=== PATIENT | male | born 1965 | race Caucasian/White ===

== ENCOUNTER → 2016-12-10 | Outpatient (CLI) | payer MEDICAID ==
[2016-12-10 13:06] VITALS: BP 142/84; PULSE 83; RESP 20; TEMP 98.8; BMI 34.0
--- NOTE | 2016-12-10 13:52 | P.BASOAP ---
Subjective Principal diagnosis: Morbid obesity Patient doing well today. Weight has been maintained at 244. His lab work from August was reviewed. He recently started increasing his vitamin D level at home. Denies nausea vomiting. Some mild chronic heartburn that is controlled with Prilosec. Objective - Vital Signs Vital signs: Vital Signs Temp 98.8 F 12/10/16 13:01 Pulse 83 12/10/16 13:01 Resp 20 12/10/16 13:01 BP 142/84 12/10/16 13:01 Pulse Ox Intake & Output 12/09/16 12/10/16 12/10/16 18:59 06:59 18:59 Weight 110.696 kg - Exam Abdomen: Soft, nontender, nondistended Assessment/Plan (1) Morbid obesity Narrative/Plan: Continue dietary and exercise regimen. Follow-up clinic evaluation 3-4 months. Plan repeat lab work in August. The patient I discussed possibly stopping his additional vitamin B1 medications a few months prior to his lab draw. Plan: Date: 12/10/16 Initial Weight: 160.481 kg Initial BMI: 49.3 Current Weight: 110.696 kg Current BMI: 34.0 Type of Surgery: Total Volume in Band: Previous Volume: Volume Removed: Volume Added: Band Size:
== END | disposition home or self-care (01) ==
LOC: BARWHC3 12:42
PROVIDERS: ATTEND Surgery
DX: E66.01 Morbid (severe) obesity due to excess calories (principal); R12 Heartburn; Z98.84 Bariatric surgery status; Z68.34 Body mass index [BMI] 34.0-34.9, adult
CPT/HCPCS: 99211

== ENCOUNTER → 2017-04-08 | Outpatient (CLI) | payer MEDICAID ==
[2017-04-08 13:27] VITALS: BP 119/78; TEMP 98; BMI 35.4
--- NOTE | 2017-04-08 14:53 | P.BASOAP ---
Subjective Principal diagnosis: Morbid obesity Patient doing well today. He was recently at [place] for 2 weeks and has had a slight weight gain that he attributes to the recent vacation. Denies GERD symptoms. No vomiting. Still take vitamin D daily. Due for annual lab work in August. Objective - Vital Signs Vital signs: Vital Signs Temp 98 F 04/08/17 13:19 Pulse Resp BP 119/78 04/08/17 13:19 Pulse Ox Intake & Output 04/07/17 04/08/17 04/08/17 18:59 06:59 18:59 Weight 115.394 kg - Exam Abdomen: Soft, nontender, nondistended Assessment/Plan (1) Morbid obesity Narrative/Plan: Follow-up this August and we'll check labs at that time. The patient will stop his vitamin B1 6 weeks prior to that to see if he is maintaining. Continue exercise and dietary regimen. Plan: Date: 04/08/17 Initial Weight: 160.481 kg Initial BMI: 49.3 Current Weight: 115.394 kg Current BMI: 35.4 Type of Surgery: Total Volume in Band: Previous Volume: Volume Removed: Volume Added: Band Size:
== END | disposition home or self-care (01) ==
LOC: BARWHC3 13:03
PROVIDERS: ATTEND Surgery
DX: E66.01 Morbid (severe) obesity due to excess calories (principal); Z68.35 Body mass index [BMI] 35.0-35.9, adult
CPT/HCPCS: 99211

== ENCOUNTER → 2017-10-07 | Outpatient (CLI) | payer MEDICAID ==
[2017-10-07 13:11] VITALS: BP 119/75; PULSE 77; RESP 16; TEMP 98.1; BMI 37.0
--- NOTE | 2017-10-07 14:41 | P.BASOAP ---
Subjective Progress Note Date: 10/07/17 Principal diagnosis: Morbid obesity Patient presents on follow-up. He was last seen in March of last year. He is 2 years postop. Doing well. 11 pound weight gain since last visit. Still with mild reflux and is on antiacid therapy at this time. No change in appetite. No change in the volume that he is eating. He recently stopped his vitamin B1 supplementation. He is due for to your lab work. Still takes vitamin D as well. He states he is due for a colonoscopy at this time. Exercise has decreased Objective - Vital Signs Vital signs: Vital Signs Temp 98.1 F 10/07/17 13:08 Pulse 77 10/07/17 13:08 Resp 16 10/07/17 13:08 BP 119/75 10/07/17 13:08 Pulse Ox Intake & Output 10/06/17 10/07/17 10/07/17 18:59 06:59 18:59 Weight 120.457 kg - Exam Abdomen: Soft, nontender, nondistended Assessment/Plan (1) Morbid obesity Narrative/Plan: Will try decreasing antiacid intake to every other day. Check to your lab works at this time. Increase exercise level. Follow-up 6 months. Plan: Date: 10/07/17 Initial Weight: 160.481 kg Initial BMI: 49.3 Current Weight: 120.457 kg Current BMI: 37.0 Type of Surgery: Total Volume in Band: Previous Volume: Volume Removed: Volume Added: Band Size:
== END | disposition home or self-care (01) ==
LOC: BARWHC3 12:45
PROVIDERS: ATTEND Surgery
DX: Z48.815 Encounter for surgical aftercare following surgery on the digestive system (principal); E66.01 Morbid (severe) obesity due to excess calories; K90.89 Other intestinal malabsorption; E55.9 Vitamin D deficiency, unspecified; Z68.37 Body mass index [BMI] 37.0-37.9, adult
CPT/HCPCS: 99211

== ENCOUNTER → 2017-10-11 | Outpatient (CLI) | payer MEDICAID ==
[2017-10-11 07:34] LABS: Basophils # (A) 0.1 k/uL (0-0.2); Basophils % (A) 1 %; Eosinophils # (A) 0.1 k/uL (0-0.7); Eosinophils % (A) 3 %; HCT 43.3 % (39.0-53.0); HGB 14.5 gm/dL (13.0-17.5); Lymphocytes # (A) 1.9 k/uL (1.0-4.8); Lymphocytes % (A) 38 %; MCH 30.3 pg (25.0-35.0); MCHC 33.6 g/dL (31.0-37.0); MCV 90.2 fL (80.0-100.0); Mean Platelet Volume 7.4; Monocytes # (A) 0.3 k/uL (0-1.0); Monocytes % (A) 6 %; Neutrophils # (A) 2.5 k/uL (1.3-7.7); Neutrophils % (A) 50 %; Platelet Count 172 k/uL (150-450); RDW 12.4 % (11.5-15.5)
[2017-10-11 09:32] LABS: ALT 30 U/L (21-72); AST 29 U/L (17-59); Albumin 4.4 g/dL (3.5-5.0); Alkaline Phosphatase 53 U/L (38-126); Anion Gap 9 mmol/L; Blood Urea Nitrogen 23 mg/dL (9-20); Calcium 9.6 mg/dL (8.4-10.2); Carbon Dioxide 29 mmol/L (22-30); Chloride 105 mmol/L (98-107); Cholesterol 170 mg/dL (<200); Glucose 104 mg/dL (74-99); HDL Cholesterol 54 mg/dL (40-60); LDL Cholesterol,Calculated 108 mg/dL (0-99); Sodium 143 mmol/L (137-145); Total Bilirubin 0.7 mg/dL (0.2-1.3); Total Protein 7.4 g/dL (6.3-8.2); Triglycerides 41 mg/dL (<150)
[2017-10-11 09:33] LABS: Potassium 4.5 mmol/L (3.5-5.1)
[2017-10-11 11:57] LABS: Vitamin D 25 Hydroxy 36.7 ng/mL (30.0-100.0)
== END | disposition home or self-care (01) ==
LOC: LABWHC1 07:03
PROVIDERS: ATTEND Family Medicine
DX: Z00.00 Encounter for general adult medical examination without abnormal findings (principal); K90.89 Other intestinal malabsorption; E55.9 Vitamin D deficiency, unspecified; E66.01 Morbid (severe) obesity due to excess calories; Z12.5 Encounter for screening for malignant neoplasm of prostate
CPT/HCPCS: 36415; 80053; 80061; 82306; 82607; 83540; 84153; 84425; 84443; 85025

== ENCOUNTER 2017-12-03 07:07 | Day surgery (SDC) | payer MEDICAID ==
[2017-12-01 10:14] VITALS: BMI 35.9
[~2017-12-03 07:07] MED LIST: LACTATED RINGERS 1,000 ML IV SCH
[2017-12-03 07:56] VITALS: RESP 18; TEMP 98.2
[2017-12-03] MEDS ORDERED: LACTATED RINGERS 1,000 ML IV ONE ×2 (07:59)
[2017-12-03] MEDS ORDERED: LIDOCAINE 1% INJ 10MG/ML (20 ML MDV) ONE (08:16)
[2017-12-03] MEDS ORDERED: PROPOFOL 10 MG/ML 20 ML VIAL IV ONE (08:16)
--- NOTE | 2017-12-03 08:23 | P.GSHP ---
History of Present Illness H&P Date: 12/03/17 Chief Complaint: Colon cancer screening Patient her today for colonoscopy. He has not had one previously. No family history of bowel cancer. No bowel related complaints. Past Medical History Past Medical History: Diabetes Mellitus, GERD/Reflux, Hypertension, Osteoarthritis (OA) Additional Past Medical History / Comment(s): Hip pain, HTN and DM resolved with weight loss of 120# History of Any Multi-Drug Resistant Organisms: None Reported Past Surgical History: Bariatric Surgery, Orthopedic Surgery Additional Past Surgical History / Comment(s): Surgery on anabelle hips as a child. Left heel spur. Gastric sleeve on 08/23/2015 Past Anesthesia/Blood Transfusion Reactions: No Reported Reaction Smoking Status: Never smoker - Past Family History Mother Family Medical History: Diabetes Mellitus Additional Family Medical History / Comment(s): glaucoma Father Family Medical History: Cancer, Diabetes Mellitus Additional Family Medical History / Comment(s): prostate cancer Sister(s) Family Medical History: Diabetes Mellitus Medications and Allergies Home Medications Medication Instructions Recorded Confirmed Type Calcium Carbonate [Calcium] 600 mg PO TID 09/12/15 12/01/17 History Multivitamins, Thera [Theragran] 1 each PO DAILY 09/12/15 12/01/17 History Omeprazole [Omeprazole] 20 mg PO DAILY 09/12/15 12/01/17 History Ferrous Sulfate [Feosol] 325 mg PO DAILY 11/22/15 12/01/17 History Thiamine [Vitamin B-1] 100 mg PO DAILY 11/22/15 12/01/17 History Cholecalciferol (Vitamin D3) 10 drop PO DAILY 04/08/17 12/01/17 History [Vitamin D3] Allergies Allergy/AdvReac Type Severity Reaction Status Date / Time No Known Allergies Allergy Verified 12/01/17 10:10 Surgical - Exam Vital Signs Temp Pulse Resp BP Pulse Ox 98.2 F 65 18 127/80 100 12/03/17 07:55 12/03/17 07:55 12/03/17 07:55 12/03/17 07:55 12/03/17 07:55 Physical exam: General: Well-developed, well-nourished HEENT: Normocephalic, sclerae nonicteric Abdomen: Nontender, nondistended Extremities: No edema Neuro: Alert and oriented Assessment and Plan (1) Colon cancer screening Narrative/Plan: Will proceed with colonoscopy at this time. Current Visit: Yes Status: Acute Code(s): Z12.11 - ENCOUNTER FOR SCREENING FOR MALIGNANT NEOPLASM OF COLON SNOMED Code(s): 622200642
--- NOTE | 2017-12-03 08:40 | P.PCN ---
Date of Procedure: 12/03/17 Procedure(s) Performed: PREOPERATIVE DIAGNOSIS: Colon cancer screening POSTOPERATIVE DIAGNOSIS: Rectal polyp PROCEDURE: Colonoscopy with snare polypectomy ANESTHESIA: MAC SURGEON: Tyler Flores M.D. SPECIMENS: Rectal polyp ENDOSCOPIC PROCEDURE: The patient was placed on the endoscopy table in the left decubitus position. The Olympus colonoscope was inserted into the anus and passed under direct visualization to the base of the cecum. The appendiceal orifice was visualized. From that point the scope was slowly withdrawn inspecting all surfaces carefully. There were no neoplastic inflammatory or polypoid lesions throughout the cecum, ascending, transverse, descending, and sigmoid colon. In the rectum a small polyp was identified and removed using the snare with cautery technique. There was no visible diverticulosis seen. Digital rectal examination was normal. The patient was taken to the recovery room in stable condition per anesthesia guidelines. RECOMMENDATIONS: Await biopsy results. Anticipate follow-up colonoscopy 5 years.
[2017-12-03 09:02] VITALS: BP 130/84; PULSE 58
== END 2017-12-03 09:26 | disposition home or self-care (01) ==
LOC: ORWHC2ENDO 07:07
PROVIDERS: ATTEND Surgery
DX: Z12.11 Encounter for screening for malignant neoplasm of colon (principal); D12.8 Benign neoplasm of rectum; E11.9 Type 2 diabetes mellitus without complications; I10 Essential (primary) hypertension; K21.9 Gastro-esophageal reflux disease without esophagitis; M19.90 Unspecified osteoarthritis, unspecified site; E66.01 Morbid (severe) obesity due to excess calories; Z79.899 Other long term (current) drug therapy; Z68.36 Body mass index [BMI] 36.0-36.9, adult; Z83.3 Family history of diabetes mellitus; Z80.42 Family history of malignant neoplasm of prostate
CPT/HCPCS: 88305; 45385; J2001; J2704

== ENCOUNTER → 2018-12-09 | Outpatient (CLI) | payer MEDICAID ==
--- NOTE | 2018-12-10 00:30 | MR ---
EXAMINATION TYPE: MR shoulder LT wo con DATE OF EXAM: 12/09/2018 COMPARISON: None HISTORY: Lt shoulder pain/injury 2 mos ago, fall TECHNIQUE: Multiplanar, multisequence imaging of the left shoulder is performed without contrast. FINDINGS: There is left shoulder joint effusion. There is some thickening and irregularity of the subscapularis tendon. The glenoid natalia appear intact. There is increased signal in the supraspinatus tendon over the humeral head consistent with full-thickness tear. There is no retraction. There is mild subacromi al joint space narrowing. There is extensive hypertrophic spurring at the AC joint. I see no focal daly ne destruction. There is some thinning of the biceps tendon. Biceps tendon is anteriorly displaced. IMPRESSION: Moderate shoulder joint effusion. Large rotator cuff tear of the supraspinatus tendon. There is also deformity and partial tear of the subscapularis tendon. No tendon retraction. Biceps tendon is mildly deformed and anterior suggestive of partial tear. No fracture. Significant hypertrophic degenerative change at the AC joint.
== END | disposition home or self-care (01) ==
LOC: RADMRIMAIN 16:16
PROVIDERS: ATTEND Orthopaedic Surgery
DX: S46.012A Strain of muscle(s) and tendon(s) of the rotator cuff of left shoulder, initial encounter (principal); M19.012 Primary osteoarthritis, left shoulder; M67.814 Other specified disorders of tendon, left shoulder

== ENCOUNTER 2019-02-17 10:42 | Day surgery (SDC) | payer MEDICAID ==
[2019-02-15 09:21] VITALS: BMI 36.2
[~2019-02-17 10:42] MED LIST changes: +LIDOCAINE 1% 20 ML VIAL (10MG/ML) FOR IV START INTRADERMA PRN; +ceFAZolin IN SWFI 2 GM/20 ML SYRINGE IVP ONE
[2019-02-17 11:11] LABS: Glucose,Whole Blood 96 mg/dL (75-99)
[2019-02-17] MEDS: ONDANSETRON 4 MG/2 ML VIAL IVP ONE ×2 (11:27→14:41)
[2019-02-17] MEDS ORDERED: DEXAMETHASONE SOD PHOS (MDV) 100 MG/10 ML VIAL IV ONE (11:28)
[2019-02-17] MEDS ORDERED: MIDAZOLAM (PF) 2 MG/2 ML VIAL IV ONE ×2 (11:40→11:57)
[2019-02-17] MEDS ORDERED: fentaNYL (PF) 50 MCG/ML 2 ML AMP IV ONE ×2 (11:40→11:58)
[2019-02-17] MEDS ORDERED: ROPIVACAINE 5 MG/ML 30 ML VIAL ONE (12:20)
[2019-02-17] MEDS ORDERED: fentaNYL (PF) 50 MCG/ML 2 ML AMP ONE (12:20)
[2019-02-17] MEDS ORDERED: LIDOCAINE 1% INJ 10MG/ML (20 ML MDV) ONE (12:20)
[2019-02-17] MEDS ORDERED: PROPOFOL 10 MG/ML 20 ML VIAL IV ONE (12:20)
[2019-02-17] MEDS ORDERED: MIDAZOLAM 2 MG/2 ML VIAL ONE (12:20)
[2019-02-17] MEDS ORDERED: DEXAMETHASONE SOD PHOS (MDV) 100 MG/10 ML VIAL ONE (12:20)
[2019-02-17] MEDS ORDERED: SUCCINYLCHOLINE CHLORIDE 100 MG/5 ML SYR IV ONE (12:20)
--- NOTE | 2019-02-17 12:22 | P.ANPRN ---
Procedure Note - Anesthesia - Nerve Block Performed Left Interscalene Single Time Out Performed: Yes Date of Procedure: 02/17/19 Procedure Start Time: 11:39 Location of Patient Procedure: PreOp Indication: Acute Post-Operative Pain Specifically requested for management of pain by DrWilmer: Kam Menezes Sedation Type: Sedate with meaningful contact maintained Preparation: Sterile Prep Position: Supine Catheter: None Needle Types: Pajunk Needle Gauge: 21 Technique: Ultrasound Injectate: 0.5% Ropivacaine (see comment for volume) (20) Blood Aspirated: No Pain Paresthesia on Injection Noted: No Resistance on Injection: Normal Events: Uneventful and Well Tolerated
[2019-02-17 14:01] VITALS: TEMP 96.8
[2019-02-17 14:30] VITALS: RESP 16
[2019-02-17 15:17] VITALS: BP 128/84; PULSE 77
--- NOTE | 2019-02-18 07:48 | OP ---
OPERATIVE REPORT DATE OF PROCEDURE: 02/17/2019 SURGEON: Kam Menezes MD RESIDENTIAL DIRECTOR: JERROD Hedrick. PREOPERATIVE DIAGNOSES: 1. Left shoulder full-thickness rotator cuff tear. 2. Left shoulder superior labral tear. 3. Left shoulder subacromial impingement. POSTOPERATIVE DIAGNOSES: 1. Left shoulder full-thickness tear of the supraspinatus 2 cm x 2 cm tear. 2. Left shoulder type 2 superior labral tear. 3. Left shoulder partial tearing intra-articular long head of the biceps tendon. 4. Left shoulder type 2 anterolateral acromial spur. PROCEDURE PERFORMED: 1. Left shoulder arthroscopic rotator cuff repair, 2 cm x 2 cm tear of the supraspinatus. 2. Left shoulder arthroscopic acromioplasty. 3. Left shoulder arthroscopic biceps tenotomy. 4. Left shoulder arthroscopic anterior, superior, and posterior labral debridement. ANESTHESIA: General endotracheal. ESTIMATED BLOOD LOSS: Minimal. TOURNIQUET: None. DRAINS: None. COMPLICATIONS: None. APPARENT DISPOSITION: Postanesthesia care unit. Examination under anesthesia, left shoulder, elevation 160 degrees, external rotation at the side 45 degrees, external rotation at 90 degrees, abduction was 90 degrees, internal rotation at 90 degrees, abduction was at 60 degrees, sulcus less than 1 cm, anterior translation glenoid face, posterior translation glenoid face. ARTHROSCOPIC FINDINGS OF THE LEFT SHOULDER: 1. Type 2 superior labral tear tearing both anterior and posterior to the biceps anchor. There is also partial tearing of the intra-articular portion of the long head of the biceps tendon. 2. Anterior, inferior labrum: Normal glenoid labral attachment. 3. Posterior labrum: Tearing of the posterior labrum from the 10 o'clock position up to the 12 o'clock position on the glenoid face. 4. Humeral head: Cartilage normal. 5. Rotator cuff: Full-thickness tear of the supraspinatus measuring 2 cm x 2 cm tear. 6. Glenoid face: Cartilage is normal. 7. Subacromial space: Significant fraying of the undersurface of the coracoacromial ligament with type 2 anterolateral acromial spur. INDICATIONS: Clive is a very pleasant 53-year-old male with left shoulder pain. 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 He has noted weakness as well as significant pain in the shoulder. He has been through fairly significant course of nonoperative treatment up to this point. Physical examination and MRI revealed tearing of the rotator cuff as well as a suggestion for superior labral tearing as well. At this point in time, he feels that he has failed nonoperative treatment and would like to proceed with operative intervention. Long discussion was held with the patient with regard to treatment options. The risks of procedure were all discussed with him in detail. These risks included, but were not limited to risk of infection, nerve damage, bleeding, pain, and a small risk of deep vein thrombosis which could lead to fatal pulmonary embolism. Further risks include lack of healing of the rotator cuff and possibility for biceps contour change with a biceps tenotomy. The patient understands the operation as well as the fact there is no guarantee of improvement of his symptoms. An appropriate informed consent was obtained. DESCRIPTION OF THE PROCEDURE: Patient identified in the preoperative holding area. Surgical site was marked by both the patient and myself. He was given 2 g of Ancef IV for prophylactic purposes. He was then transported to the operative suite. He was placed supine on the operative table. Patient was then intubated endotracheally and received general anesthesia throughout the operative procedure. Examination under anesthesia was then performed and the findings noted above. Patient is placed in the beach chair position, well-padded in preparation for surgery. Great care was taken to ensure the cervical spine is in neutral alignment, well-padded and maintained that way throughout the operative procedure. Great care was also taken to ensure that his legs were appropriately padded as well. Patient's left upper extremity was then prepped and draped in usual sterile fashion. Standard surgical pause undertaken to ensure that appropriate preoperative antibiotics were given and that we were operating on the correct site. All staff in room were in agreement and we proceeded. The acromion as well as the AC joint and coracoid were marked with surgical pen. The skin of the anticipated portal sites were also marked with surgical pen. The skin of the anticipated portal sites were then injected with 0.5% Marcaine with epinephrine. I then proceeded to make a posterior portal. A 30 degree arthroscope was used through the glenohumeral joint through this portal. The arthroscopic pump pressure was set at 40 mmHg and maintained at that level throughout the entire case. Next, utilizing an 18-gauge spinal needle topical localized placement, the anterior superior portal was made. This was made just underneath the biceps tendon high in the rotator interval. A small 5.75 mm cannula was then placed and the outflow was then done through this cannula. Diagnostic arthroscopy of the shoulder was then performed. The findings as noted above. Great care was taken to probe superior labral complex as well as the biceps anchor. He had a type 2 tear of the superior labrum. This extended both anterior and posterior to the biceps anchor. I did bring the grooved portion of the long head of the biceps tendon into the joint. There was partial tearing of the long head of the biceps tendon at that area. At this point, I proceeded with a biceps tenotomy. The biceps was tenotomized near its attachment on the supraglenoid tubercle. This was done utilizing the ArthroCare wand. I then proceeded to debride the torn loose tissue of the superior labrum. This was debrided anteriorly, superiorly, and posteriorly back to stable tissue. I then inspect the rotator cuff from intra-articular. He did have a full-thickness tear of the supraspinatus. This was sterilely debrided very gently from intra- articular utilizing synovial shaver. At this point, no further work was deemed necessary from intra-articular. The arthroscope was removed from the glenohumeral joint and utilizing the same posterior skin incision was placed in the subacromial space. Next, utilizing an 18-gauge spinal needle with topical localized placement, a lateral portal was made under direct visualization. A subacromial bursectomy was then performed utilizing synovial shaver as well as the ArthroCare wand. There was significant fraying of the undersurface of the coracoacromial ligament. This was then taken down utilizing the ArthroCare wand. This exposed underlying type 2 anterolateral acromial spur. I then proceeded with an acromioplasty. Utilizing synovial shaver in a sung-type fashion, the acromioplasty was completed. When the acromioplasty was complete, the arthroscope was placed in the lateral portal. The shaver placed posteriorly to ensure that there was adequate and coplanar with the posterior aspect of the acromion. I then proceeded to repair the rotator cuff tear. He had a full-thickness tear of the supraspinatus. It measured approximately 2 cm x 2 cm. The footprint of the greater tuberosity was then debrided of all devitalized tissue utilizing synovial shaver as well as the ArthroCare wand. I then performed a light decortication of the greater tuberosity utilizing synovial shaver in a sung-type fashion. This provided a nice bleeding surface with repair. I then furthermore placed a small microfracture holes along the articular margin to again enhance the healing of the repair. I then made a fourth portal off the anterolateral angle of the acromion. Again this was done after first localizing placement with an 18-gauge spinal needle. The arthroscope was moved into the lateral portal. I then utilized a scorpion suture passer and placed Arthrex fiber tape suture in inverted horizontal mattress fashion. The posterior half of the tear. I then again utilized the scorpion suture passer and placed Arthrex fiber tape suture in inverted horizontal mattress fashion in the anterior half of the tear. The anterior sutures were shuttled out through the anterior portal. I then proceeded placement of the first anchor. I started with the posterior anchor first. The awl was placed in the most posterior lateral aspect of the footprint. He had excellent bone quality. The posterior fiber tape sutures were shuttled through an Arthrex 4.75 mm bio SwiveLock anchor and then the anchor was placed after tensioning the sutures appropriately. The anchor had excellent purchase and bone. This brought the posterior half of the tear down very nicely to the most posterolateral aspect of the footprint. The FiberTape sutures were cut flush with the anchor. I then proceeded to place the anterior anchor. The anterior sutures were then brought out through the anterolateral portal. The awl was placed in the most anterolateral aspect of the footprint. This was just posterior to the bicipital groove. Again, he had excellent bone quality. The FiberTape sutures were then shuttled through an Arthrex 4.75 mm bio SwiveLock anchor. The few sutures were tensioned appropriately and the anchor placed with an excellent purchase in bone. This brought the anterior half of the tear down very nicely to the most anterolateral aspect of the footprint. The FiberTape sutures were then cut flush with the anchor. At this point, the repair was probed. The rotator cuff had been repaired down very nicely in the most lateral aspect of the footprint. Sutures had the anchors were firmly placed in bone. The sutures had good head support were done without any undue tension. At this point no further work was deemed necessary. The shoulder was thoroughly irrigated and drained with an outflow cannula. The arthroscope was removed from the shoulder. The arthroscopic portals were then closed with 3-0 nylon interrupted suture. Sterile compressive dressing was then applied. The patient's left upper extremity was then placed into a slingshot-type rotator cuff immobilizer. All sponge and needle counts were deemed correct prior to closure. The patient tolerated the procedure without apparent complication. He was transferred to recovery room in stable condition. MMODL / IJN: [id number] /
== END 2019-02-17 15:31 | disposition home or self-care (01) ==
LOC: OR 10:42
PROVIDERS: ATTEND Orthopaedic Surgery Sports Medicine
DX: M75.122 Complete rotator cuff tear or rupture of left shoulder, not specified as traumatic (principal); S43.432A Superior glenoid labrum lesion of left shoulder, initial encounter; S46.112A Strain of muscle, fascia and tendon of long head of biceps, left arm, initial encounter; W00.0XXA Fall on same level due to ice and snow, initial encounter; M75.92 Shoulder lesion, unspecified, left shoulder; M75.42 Impingement syndrome of left shoulder; Z98.84 Bariatric surgery status; Z83.3 Family history of diabetes mellitus; K21.9 Gastro-esophageal reflux disease without esophagitis; E66.9 Obesity, unspecified; Z68.36 Body mass index [BMI] 36.0-36.9, adult; M72.2 Plantar fascial fibromatosis; E11.9 Type 2 diabetes mellitus without complications; I10 Essential (primary) hypertension; Z79.1 Long term (current) use of non-steroidal anti-inflammatories (NSAID); Z79.899 Other long term (current) drug therapy; Z79.891 Long term (current) use of opiate analgesic
CPT/HCPCS: 64415; 29826; 29827; C1713 ×3; J2250 ×2; J2405; J2001; J3010; J1100; J2795; J0330; J2704; J0690

== ENCOUNTER → 2019-11-16 | Outpatient (CLI) | payer MEDICAID ==
[2019-11-16 07:39] LABS: Basophils % (A) 1 %; Eosinophils # (A) 0.1 k/uL (0-0.7); Eosinophils % (A) 3 %; HCT 41.7 % (39.0-53.0); HGB 13.9 gm/dL (13.0-17.5); Lymphocytes # (A) 1.8 k/uL (1.0-4.8); Lymphocytes % (A) 35 %; MCH 29.5 pg (25.0-35.0); MCHC 33.2 g/dL (31.0-37.0); MCV 88.9 fL (80.0-100.0); Monocytes # (A) 0.3 k/uL (0-1.0); Monocytes % (A) 6 %; Neutrophils # (A) 2.7 k/uL (1.3-7.7); Neutrophils % (A) 53 %; Platelet Count 159 k/uL (150-450); RDW 12.4 % (11.5-15.5); WBC 5.1 k/uL (3.8-10.6)
[2019-11-16 13:34] LABS: % Iron Saturation 35.76 (15.00-50.00); ALT 20 U/L (10-49); AST 24 U/L (14-35); African American GFR (CKD) 99.8 (60.0-200.0); Albumin/Globulin Ratio 1.76 (1.60-3.17); Alkaline Phosphatase 46 U/L (41-126); Calcium 9.3 mg/dL (8.7-10.3); Carbon Dioxide 27.4 mmol/L (21.6-31.8); Chloride 104 mmol/L (96-109); Chol/HDL Ratio 3.18; Cholesterol 162 mg/dL (0-200); Globulin 2.5 g/dL (1.6-3.3); Glucose 115 mg/dL (70-110); Iron 118 ug/dL (65-175); Magnesium 1.8 mg/dL (1.5-2.4); Non-African American GFR(CKD) 86.2 (60.0-200.0); Potassium 4.2 mmol/L (3.5-5.5); Sodium 139 mmol/L (135-145); Total Bilirubin 1.1 mg/dL (0.3-1.2); Total Iron Binding Capacity 330 ug/dL (228-460); Total Protein 6.9 g/dL (6.2-8.2); Triglycerides <50.0 mg/dL (0.0-149.0)
[2019-11-16 14:47] LABS: Ferritin 17.2 ng/mL (22.0-322.0); Folate, Serum 22.8 ng/mL
[2019-11-16 16:13] LABS: Hemoglobin A1C 5.6 % (4.0-6.0)
[2019-11-17 10:43] LABS: Zinc, Serum 79 ug/dL (60-130)
[2019-11-18 10:08] LABS: Vitamin A 43 ug/dL (38-106)
[2019-11-19 10:50] LABS: Vit B1(Thiamine) 89 ug/L (38-122)
== END | disposition home or self-care (01) ==
LOC: LABWHC1 07:05
PROVIDERS: ATTEND Family Medicine
DX: Z00.00 Encounter for general adult medical examination without abnormal findings (principal); Z12.5 Encounter for screening for malignant neoplasm of prostate; Z98.84 Bariatric surgery status
CPT/HCPCS: 84425; 80061; 80053; 82607; 82728; 82746; 83540; 83550; 83735; 84443; 84590; 84630; 85025; 82306; 83036; 36415; G0103

== ENCOUNTER → 2020-11-27 | Outpatient (CLI) | payer BC ==
[2020-11-27 10:34] LABS: Basophils # (A) 0.05 X 10*3/uL (0.00-0.10); Basophils % (A) 0.7 %; Eosinophils # (A) 0.08 X 10*3/uL (0.04-0.35); Eosinophils % (A) 1.2 %; HCT 40.4 % (39.6-50.0); HGB 13.3 g/dL (13.0-17.0); Lymphocytes # (A) 2.23 X 10*3/uL (0.90-5.00); Lymphocytes % (A) 33.4 %; MCH 29.3 pg (27.0-32.0); MCHC 32.9 g/dL (32.0-37.0); Mean Platelet Volume 11.6 fL (9.5-12.2); Monocytes # (A) 0.51 X 10*3/uL (0.20-1.00); Monocytes % (A) 7.6 %; Platelet Count 149 X 10*3/uL (140-440); RBC 4.54 X 10*6/uL (4.40-5.60); RDW 12.3 % (11.5-14.5); WBC 6.68 X 10*3/uL (4.50-10.00)
[2020-11-27 11:03] LABS: ALT 19 U/L (10-49); AST 22 U/L (14-35); African American GFR (CKD) 112.6 (60.0-200.0); Albumin/Globulin Ratio 1.83 (1.60-3.17); Alkaline Phosphatase 53 U/L (41-126); Calcium 9.3 mg/dL (8.7-10.3); Carbon Dioxide 30.5 mmol/L (21.6-31.8); Chloride 106 mmol/L (96-109); Chol/HDL Ratio 2.91; Cholesterol 154 mg/dL (0-200); Globulin 2.4 g/dL (1.6-3.3); Glucose 107 mg/dL (70-110); Non-African American GFR(CKD) 97.2 (60.0-200.0); Potassium 4.3 mmol/L (3.5-5.5); Sodium 142 mmol/L (135-145); Total Bilirubin 0.8 mg/dL (0.3-1.2); Total Protein 6.8 g/dL (6.2-8.2); Triglycerides <50.0 mg/dL (0.0-149.0)
[2020-11-27 11:33] LABS: Prostate Specific Antigen 1.3 ng/mL (0.0-3.5)
== END | disposition home or self-care (01) ==
LOC: LABWHC1 07:29
PROVIDERS: ATTEND Family Medicine
DX: Z00.00 Encounter for general adult medical examination without abnormal findings (principal); Z12.5 Encounter for screening for malignant neoplasm of prostate
CPT/HCPCS: 36415; 80053; 80061; 84153; 84443; 85025

== ENCOUNTER 2022-06-04 10:18 | Emergency (ER) | payer BC, OTHER ==
[2022-06-04 10:28] VITALS: BP 165/88; PULSE 73; RESP 20; TEMP 98.2
[2022-06-04] MEDS ORDERED: LIDOCAINE 1% INJ 10MG/ML (20 ML MDV) SQ ONE (11:54)
--- NOTE | 2022-06-04 12:16 | ED ---
Wound/Laceration HPI - General Chief Complaint: Wound/Laceration Stated Complaint: IHS-arm lac Time Seen by Provider: 06/04/22 11:54 Source: patient, RN notes reviewed, old records reviewed Mode of arrival: ambulatory Limitations: no limitations - History of Present Illness Initial Comments: This is a well-appearing 56-year-old male that presents with a 4 cm laceration to his right forearm on a piece of metal at work. States his tetanus shot is up-to-date. No other injuries. -: hour(s) (2) Extremity Location: Right: Forearm (4cm) Place: work Patient Tetanus UTD: Yes Context: accidental Associated Symptoms: none Treatments Prior to Arrival: bandage - Related Data Home Medications Medication Instructions Recorded Confirmed Calcium Carbonate [Calcium] 600 mg PO TID 09/12/15 02/17/19 Multivitamins, Thera [Theragran] 1 each PO DAILY 09/12/15 02/17/19 Omeprazole 20 mg PO DAILY 09/12/15 02/17/19 Ferrous Sulfate [Feosol] 325 mg PO DAILY 11/22/15 02/17/19 Thiamine [Vitamin B-1] 100 mg PO DAILY 11/22/15 02/17/19 Cholecalciferol (Vitamin D3) 10 drop PO DAILY 04/08/17 02/17/19 [Vitamin D3] Naltrexone HCl [Revia] 50 mg PO DAILY 02/15/19 02/17/19 Previous Rx's Medication Instructions Recorded Doxycycline Hyclate 100 mg PO BID #10 tab 02/17/19 HYDROcodone/APAP 5-325MG [[place] 1 tab PO Q4HR PRN #42 tab 02/17/19 5-325] Allergies Allergy/AdvReac Type Severity Reaction Status Date / Time No Known Allergies Allergy Verified 06/04/22 10:27 Review of Systems ROS Statement: Those systems with pertinent positive or pertinent negative responses have been documented in the HPI. ROS Other: All systems not noted in ROS Statement are negative. Past Medical History Past Medical History: Diabetes Mellitus, GERD/Reflux, Hypertension, Osteoart hritis (OA) Additional Past Medical History / Comment(s): Hip pain, HTN and DM resolved with weight loss as of 05/07/16 History of Any Multi-Drug Resistant Organisms: None Reported Past Surgical History: Bariatric Surgery, Orthopedic Surgery Additional Past Surgical History / Comment(s): Surgery on anabelle hips as a child. Left heel spur. Gastric sleeve on 08/23/2015 Past Anesthesia/Blood Transfusion Reactions: No Reported Reaction Past Psychological History: No Psychological Hx Reported Smoking Status: Never smoker Past Alcohol Use History: None Reported Past Drug Use History: None Reported - Past Family History Mother Family Medical History: Diabetes Mellitus Additional Family Medical History / Comment(s): glaucoma Father Family Medical History: Cancer, Diabetes Mellitus Additional Family Medical History / Comment(s): prostate cancer Sister(s) Family Medical History: Diabetes Mellitus General Exam Limitations: no limitations General appearance: alert, in no apparent distress Head exam: Present: atraumatic Respiratory exam: Absent: respiratory distress, accessory muscle use Cardiovascular Exam: Present: regular rate Right Elbow exam: Present: full ROM Forearm Wrist exam: Present: full ROM, laceration (4cm linear ). Absent: ecchymosis Hand Wrist exam: Present: full ROM Vascular: Present: normal capillary refill. Absent: vascular compromise Neurological exam: Present: alert, oriented X3, normal gait Psychiatric exam: Present: normal affect, normal mood Skin exam: Present: warm, dry, normal color. Absent: cyanosis, diaphoretic, petechiae, pallor Course Vital Signs 06/04/22 10:25 Temperature 98.2 F Pulse Rate 73 Respiratory 20 Rate Blood Pressure 165/88 O2 Sat by Pulse 97 Oximetry Procedures - Laceration Laceration #1 Consent Obtained: verbal consent Indication: laceration Site: upper extremity (forearm) Size (cm): 4 Description: linear Depth: simple, single layer Anesthetic Used: lidocaine 1% Anesthesia Technique: local infiltration Amount (mls): 3 Pre-repair: irrigated extensively Type of Sutures: nylon Size of Sutures: 4-0 Number of Sutures: 4 Technique: simple, interrupted Patient Tolerated Procedure: well, no complications Medical Decision Making - Medical Decision Making Laceration was irrigated with 50 mL saline. No concern for foreign body. No surrounding erythema. Sutures placed to approximate wound with no complications. Patient states tetanus shot is up-to-date. He was directed to return with any signs of infection. Dr Arias is my attending. Disposition Clinical Impression: Laceration Disposition: HOME SELF-CARE Condition: Good Additional Instructions: Sutures to be removed in 7-10 days. Follow-up with your primary care doctor next week. Return to the emergency room with any new or concerning symptoms including signs of infection; redness or drainage or fevers. Is patient prescribed a controlled substance at d/c from ED?: No Referrals: Timothy Gutierrez MD [Primary Care Provider] - 1-2 days Time of Disposition: 12:15
== END 2022-06-04 12:21 | disposition home or self-care (01) ==
LOC: EC 10:18
DX: S51.811A Laceration without foreign body of right forearm, initial encounter (principal); E11.9 Type 2 diabetes mellitus without complications; K21.9 Gastro-esophageal reflux disease without esophagitis; I10 Essential (primary) hypertension; Z79.899 Other long term (current) drug therapy; W26.8XXA Contact with other sharp object(s), not elsewhere classified, initial encounter; Y99.0 Civilian activity done for income or pay; Y92.89 Other specified places as the place of occurrence of the external cause
CPT/HCPCS: 99282; 12002 ×2; 99283; J2001

== ENCOUNTER 2024-09-28 08:20 | Day surgery (SDC) | payer BC ==
[2024-09-22 15:27] VITALS: BMI 36.6
[~2024-09-28 08:20] MED LIST changes: +LIDOCAINE 1% (10MG/ML) FOR IV START INTRADERMA PRN; -LIDOCAINE 1% 20 ML VIAL (10MG/ML) FOR IV START INTRADERMA PRN; -ceFAZolin IN SWFI 2 GM/20 ML SYRINGE IVP ONE
[2024-09-28] MEDS: SODIUM CHLORIDE 0.9% 1,000 ML IV ONE (08:49)
[2024-09-28 08:53] VITALS: TEMP 96.8
[2024-09-28] MEDS ORDERED: PROPOFOL 10 MG/ML 20 ML VIAL IV ONE (09:48)
--- NOTE | 2024-09-28 09:51 | P.GSHP ---
History of Present Illness H&P Date: 09/28/24 Chief Complaint: Colon cancer screening with history of polyps 59-year-old male here for colonoscopy. Last colonoscopy 6 years ago. Patient had a small rectal tubular adenoma at that time. No bowel complaints. No family history of colon cancer. Past Medical History Past Medical History: GERD/Reflux, Osteoarthritis (OA) Additional Past Medical History / Comment(s): Hip pain, HTN and DM resolved with weight loss as of 05/07/16 History of Any Multi-Drug Resistant Organisms: None Reported Past Surgical History: Bariatric Surgery, Orthopedic Surgery Additional Past Surgical History / Comment(s): Surgery on anabelle hips as a child. Left heel spur. Gastric sleeve on 08/23/2015 Past Anesthesia/Blood Transfusion Reactions: No Reported Reaction Additional Past Anesthesia/Blood Transfusion Reaction / Comment(s): no blood transfusion Smoking Status: Never smoker - Past Family History Mother Family Medical History: Diabetes Mellitus Additional Family Medical History / Comment(s): glaucoma Father Family Medical History: Cancer, Diabetes Mellitus Additional Family Medical History / Comment(s): prostate cancer Sister(s) Family Medical History: Diabetes Mellitus Medications and Allergies Home Medications Medication Instructions Recorded Confirmed Type Calcium Carbonate [Calcium] 600 mg PO TID 09/12/15 09/22/24 History Multivitamins, Thera [Theragran] 1 each PO DAILY 09/12/15 09/22/24 History Omeprazole 20 mg PO DAILY 09/12/15 09/28/24 History Ferrous Sulfate [Feosol] 325 mg PO DAILY 11/22/15 09/22/24 History Thiamine [Vitamin B-1] 100 mg PO DAILY 11/22/15 09/28/24 History Cholecalciferol (Vitamin D3) 10 drop PO DAILY 04/08/17 09/22/24 History [Vitamin D3] Glucosamine/Chondr Chow A Sod [Osteo 1 each PO BID 09/22/24 09/22/24 History Bi-Flex Caplet] Allergies Allergy/AdvReac Type Severity Reaction Status Date / Time No Known Allergies Allergy Verified 09/28/24 08:47 Surgical - Exam Vital Signs Temp Pulse Resp BP Pulse Ox 96.8 F L 73 16 155/84 99 09/28/24 08:52 09/28/24 08:52 09/28/24 08:52 09/28/24 08:52 09/28/24 08:52 Physical exam: General: Well-developed, well-nourished HEENT: Normocephalic, sclerae nonicteric Abdomen: Nontender, nondistended Extremities: No edema Neuro: Alert and oriented Assessment and Plan (1) Colon cancer screening Narrative/Plan: Will proceed with colonoscopy at this time. Current Visit: No Status: Acute Code(s): Z12.11 - ENCOUNTER FOR SCREENING FOR MALIGNANT NEOPLASM OF COLON SNOMED Code(s): 335788603
--- NOTE | 2024-09-28 10:03 | P.PCN ---
Date of Procedure: 09/28/24 Procedure(s) Performed: PREOPERATIVE DIAGNOSIS: Colon cancer screening with history of polyps POSTOPERATIVE DIAGNOSIS: Descending colon polyp PROCEDURE: Colonoscopy with snare polypectomy ANESTHESIA: MAC SURGEON: Tyler Flores M.D. SPECIMENS: Polyp ENDOSCOPIC PROCEDURE: The patient was placed on the endoscopy table in the left decubitus position. The Olympus colonoscope was inserted into the anus and passed under direct visualization to the base of the cecum. The appendiceal orifice was visualized. From that point the scope was slowly withdrawn inspecting all surfaces carefully. There were no neoplastic inflammatory or polypoid lesions throughout the cecum, ascending, or transverse colon. In the proximal descending colon a small polyp was seen and removed using the snare with cautery technique. The remainder of the sigmoid and rectum was normal. There was no visible diverticulosis. Digital rectal examination was normal. The patient was taken to the recovery room in stable condition per anesthesia guidelines. RECOMMENDATIONS: Await biopsy results. Anticipate repeat colonoscopy 5 to 7 years.
[2024-09-28 10:27] VITALS: BP 127/84; PULSE 72; RESP 18
== END 2024-09-28 10:50 | disposition home or self-care (01) ==
LOC: ORWHC2ENDO 08:20
PROVIDERS: ATTEND Surgery
DX: Z12.11 Encounter for screening for malignant neoplasm of colon (principal); D12.4 Benign neoplasm of descending colon; Z86.0101 Personal history of adenomatous and serrated colon polyps; K21.9 Gastro-esophageal reflux disease without esophagitis; M19.90 Unspecified osteoarthritis, unspecified site; Z79.899 Other long term (current) drug therapy; Z86.79 Personal history of other diseases of the circulatory system; Z86.39 Personal history of other endocrine, nutritional and metabolic disease; Z98.84 Bariatric surgery status; Z98.890 Other specified postprocedural states; Z83.3 Family history of diabetes mellitus
CPT/HCPCS: 88305; 45385; J2704